=== PATIENT | female | born 1960 | race Asian ===

== ENCOUNTER → 2019-08-30 | Day surgery (SDC) | payer OTHER ==
[2019-08-29 11:48] VITALS: BMI 24.7
[2019-08-30 12:11] VITALS: TEMP 98.4
[2019-08-30 13:40] VITALS: BP 105/63; PULSE 69
== END | disposition home or self-care (01) ==
LOC: JASU-ENDO 08:57
PROVIDERS: ATTEND Internal Medicine Gastroenterology
PROC: 0DJD8ZZ Inspection of Lower Intestinal Tract, Via Natural or Artificial Opening Endoscopic (ICD-10-PCS; principal; 2019-08-30 10:45)
DX: Z12.11 Encounter for screening for malignant neoplasm of colon (principal); K64.8 Other hemorrhoids
CPT/HCPCS: 82962